=== PATIENT | male | born 1970 ===

== ENCOUNTER 2020-08-23 17:31 | Emergency (ER) | payer BC ==
[2020-08-23 17:43] VITALS: BP 146/100
[2020-08-23] MEDS ORDERED: IBUPROFEN 800 MG TAB PO ONE (19:38)
[2020-08-23] MEDS ORDERED: LIDOCAINE (1%) 10 MG/1 ML VIAL 20 ML MDV INFILTRATI ONE (19:38)
[2020-08-23] MEDS ORDERED: DIPHtheria,PERTUSSIS(ACELL),TETANUS VACCINE/PF 0.5 ML VIAL IM ONE (19:38)
[2020-08-23] MEDS ORDERED: NEOMY 3.5 MG/BACIT 400 UNITS/POLY B 5000 UNITS/GM OINT PACKET TP ONE (19:39)
--- NOTE | 2020-08-23 20:59 | Emergency Department Report ---
ED Upper Extremity Inj HPI - General Chief Complaint: Extremity Injury, Upper Stated Complaint: LT INDEX FINGER LACERATION Source: patient Mode of arrival: Ambulatory Limitations: No Limitations - History of Present Illness Initial Comments: Patient is a 50-year-old male with no past medical history presents to the ED with complaint of acute onset persistent painful bleeding left index finger laceration on palmar side after he accidentally cut his left index finger when cutting some sheet rock at home about 3 hours ago. Patient states that he is not up-to-date with tetanus vaccinations. Patient states that the pain and bleeding have been persistent and not controlled. Patient denies numbness and tingling or weakness of left hand or left index finger, nausea, vomiting, fall, dizziness, chest pain or shortness of breath or syncope. MD Complaint: Injury to:: left, finger (index finger laceration ) -: Sudden, hour(s) (3) Other Extremity Injury: Fingers: Left (Index finger laceration on palmar side) Other Injuries: none Place: home Severity scale (0 -10): 7 Improves With: none Worsens With: movement of extremity Context: laceration, injury Associated Symptoms: denies other symptoms. denies: weakness, numbness, neck pain, suspects foreign body, nausea/vomiting, heard/felt popping sensat - Related Data Previous Rx's Medication Instructions Recorded Last Taken Type Ibuprofen [Motrin] 800 mg PO Q8HR PRN #30 tablet 08/23/20 Unknown Rx cephALEXin [Keflex] 500 mg PO Q8HR #30 cap 08/23/20 Unknown Rx Allergies Allergy/AdvReac Type Severity Reaction Status Date / Time No Known Allergies Allergy Unverified 08/23/20 17:34 ED Review of Systems ROS: Stated complaint: LT INDEX FINGER LACERATION Other details as noted in HPI Constitutional: denies: chills, fever Eyes: denies: eye pain, eye discharge, vision change ENT: denies: ear pain, throat pain Respiratory: denies: cough, shortness of breath, wheezing Cardiovascular: denies: chest pain, palpitations Endocrine: no symptoms reported Gastrointestinal: denies: abdominal pain, nausea, diarrhea Genitourinary: denies: urgency, dysuria Musculoskeletal: arthralgia (Left index finger laceration with pain). denies: back pain, joint swelling Skin: other (Left index finger bleeding laceration on palmar side). denies: rash, lesions Neurological: denies: headache, weakness, paresthesias Psychiatric: denies: anxiety, depression Hematological/Lymphatic: denies: easy bleeding, easy bruising ED Past Medical Hx - Past Medical History Previous Medical History?: No - Surgical History Past Surgical History?: Yes Hx Appendectomy: Yes - Social History Smoking Status: Never Smoker Substance Use Type: Alcohol - Medications Home Medications: Home Medications Medication Instructions Recorded Confirmed Last Taken Type Ibuprofen [Motrin] 800 mg PO Q8HR PRN #30 tablet 08/23/20 Unknown Rx cephALEXin [Keflex] 500 mg PO Q8HR #30 cap 08/23/20 Unknown Rx ED Physical Exam - General Limitations: No Limitations General appearance: alert, in no apparent distress - Head Head exam: Present: atraumatic, normocephalic, normal inspection - Eye Eye exam: Present: normal appearance, PERRL, EOMI Pupils: Present: normal accommodation - ENT ENT exam: Present: normal exam, normal orophraynx, mucous membranes moist, TM's normal bilaterally, normal external ear exam - Neck Neck exam: Present: normal inspection, full ROM - Respiratory Respiratory exam: Present: normal lung sounds bilaterally. Absent: respiratory distress, wheezes, rales, rhonchi, chest wall tenderness, accessory muscle use - Cardiovascular Cardiovascular Exam: Present: normal rhythm, tachycardia, normal heart sounds. Absent: systolic murmur, diastolic murmur, rubs, gallop - GI/Abdominal GI/Abdominal exam: Present: soft, normal bowel sounds. Absent: tenderness, guarding, rebound, hyperactive bowel sounds, hypoactive bowel sounds - Extremities Exam Extremities exam: Present: normal inspection, full ROM, tenderness (Palpable left index finger tenderness due to a bleeding 5 cm laceration on palmar side), normal capillary refill. Absent: joint swelling - Back Exam Back exam: Present: normal inspection, full ROM. Absent: tenderness, CVA tenderness (R), CVA tenderness (L), muscle spasm, paraspinal tenderness, vertebral tenderness - Neurological Exam Neurological exam: Present: alert, oriented X3, CN II-XII intact, normal gait, reflexes normal - Psychiatric Psychiatric exam: Present: normal affect, normal mood - Skin Skin exam: Present: warm, dry, intact, normal color, other (Bleeding left index finger 5 cm laceration on palmar side). Absent: rash ED Course Vital Signs 08/23/20 08/23/20 17:41 22:00 Temperature 98.8 F Pulse Rate 115 H 87 Respiratory 16 14 Rate Blood Pressure 146/100 O2 Sat by Pulse 96 99 Oximetry - Laceration /Wound Repair Left Palm Finger Wound Location: upper extremity (Left index finger laceration on palmar side) Wound Length (cm): 5 Wound's Depth, Shape: superficial, irregular Wound Explored: contaminated Irrigated w/ Saline (ccs): 200 Betadine Prep?: Yes Anesthesia: 1% Lidocaine Volume Anesthetic (ccs): 7 Wound Debrided: extensive Wound Repaired With: sutures Suture Size/Type: 4:0, proline Number of Sutures: 11 Layer Closure?: No Sterile Dressing Applied?: Yes Progress: Patient tolerated the procedure well. The wound was then sutured and dressed appropriately. Patient will discharge home on pain medication and prophylactic antibiotics and advised follow-up with his primary care physician in 7 to 10 days for reevaluation or return to the ED immediately if symptoms get worse. Patient was otherwise advised to return to the ED or to his primary care physician in 12 to 14 days for suture removal. ED Medical Decision Making - Medical Decision Making This is a 50-year-old male with no past medical history presents to the ED with complaint of acute onset persistent painful bleeding left index finger laceration on palmar side after he accidentally cut his left index finger when cutting some sheet rock at home about 3 hours ago. Patient states that he is not up-to-date with tetanus vaccinations. Patient states that the pain and bleeding have been persistent and not controlled. In the ED, patient is alert and oriented x3 and is not in distress but tachycardic and anxious in triage. Patient was treated for pain in the ED and also received booster tetanus vaccinations. The left index finger bleeding laceration was cleaned thoroughly and sutured per protocol. Patient tolerated the procedure well. On reevaluation, patient's pain is well controlled medications, and tachycardia also resolved. The wound was then dressed appropriately and the patient was discharged home on pain medication and prophylactic antibiotics and advised follow-up with his primary care physician in 7 to 10 days for reevaluation or return to the ED immediately if symptoms get worse. Patient was otherwise advised return to the ED or to his primary care physician in 12 to 14 days for suture removal. - Differential Diagnosis Laceration; Puncture wound; Index finger injury Critical care attestation.: If time is entered above; I have spent that time in minutes in the direct care of this critically ill patient, excluding procedure time. ED Disposition Clinical Impression: Laceration of left index finger w/o foreign body w/o damage to nail Qualifiers: Encounter type: initial encounter Qualified Code(s): S61.211A - Laceration without foreign body of left index finger without damage to nail, initial encounter Disposition: TO HOME OR SELFCARE Is pt being admited?: No Does the pt Need Aspirin: No Condition: Stable Instructions: Laceration Care, Adult, [id number], Sutured Wound Care, [id number] Additional Instructions: [place] la medicacin con alimentos, leena muchos lquidos y jeffrey un seguimiento con correa mdico de atencin primaria en 7 a 10 gonzalez para javier reevaluacin. Regrese al servicio de urgencias de inmediato si nino sntomas empeoran, especialmente si presenta hinchazn intensa, eritema difuso en el dedo ndice rhea de la mano izquierda, nuseas y vmitos, fiebre o dolor que empeora. De lo contrario, jeffrey un seguimiento con correa mdico de atencin primaria o regrese al servicio de urgencias en 12 a 14 gonzalez para retirar la sutura. Prescriptions: cephALEXin [Keflex] 500 mg PO Q8HR #30 cap Ibuprofen [Motrin] 800 mg PO Q8HR PRN #30 tablet PRN Reason: Pain , Severe (7-10) Referrals: [facility] [Provider Group] - 7-10 days Time of Disposition: 21:08 Print Language: BERMUDIAN
== END 2020-08-23 21:41 | disposition home or self-care (01) ==
LOC: ED 17:31
DX: S61.211A Laceration without foreign body of left index finger without damage to nail, initial encounter (principal); Z90.49 Acquired absence of other specified parts of digestive tract; Z79.1 Long term (current) use of non-steroidal anti-inflammatories (NSAID); Z79.899 Other long term (current) drug therapy; W26.9XXA Contact with unspecified sharp object(s), initial encounter; Y93.89 Activity, other specified; Y92.89 Other specified places as the place of occurrence of the external cause; Y99.8 Other external cause status
CPT/HCPCS: 12044; 90471; 90715; 99282; A6250